=== PATIENT | male | born 1990 ===

== ENCOUNTER 2022-12-21 01:23 | Emergency (ER) | payer SELFPAY ==
[2022-12-21 02:41] LABS: CORONAVIRUS COVID-19 NAA NEGATIVE (NEGATIVE); RESPIRATORY SYNCYTIAL VIR NAA NEGATIVE (NEGATIVE)
[2022-12-21 02:57] LABS: ANION GAP 11.9 mEq/L (7-13); CHLORIDE,CL 102 mmol/L (98-107); ESTIMATED GFR 93 mL/min (>=60); SODIUM,NA 139 mmol/L (136-145)
== END 2022-12-21 04:23 | disposition home or self-care (01) ==
LOC: DL.ED 01:23
DX: F41.9 Anxiety disorder, unspecified (principal); Z20.822 Contact with and (suspected) exposure to COVID-19
CPT/HCPCS: 0241U; 36415; 70450; 80053; 83735; 84443; 85025; 93005; 99284